=== PATIENT | male | born 1990 | race African-American/Black ===

== ENCOUNTER 2017-08-16 15:08 | Emergency (ER) | payer OTHER, MEDICAID ==
[~2017-08-16] VITALS: Ht 167.6 cm; Wt 130.0 kg
[2017-08-16] MEDS ORDERED: TETANUS, DIPHTHERIA, PERTUSSIS VAC/PF 0.5ML (>7YR OLD) IM ONE (16:00)
[2017-08-16] MEDS ORDERED: BACITRACIN ZINC OINT UDPKT TOP ONE (16:00)
[2017-08-16 17:28] VITALS: BP 128/79
== END 2017-08-16 17:57 | disposition home or self-care (01) ==
LOC: ER 15:50
DX: S60.417A Abrasion of left little finger, initial encounter (principal); S60.415A Abrasion of left ring finger, initial encounter; Y22.XXXA Handgun discharge, undetermined intent, initial encounter; Y93.89 Activity, other specified; Y92.212 Middle school as the place of occurrence of the external cause; Y99.8 Other external cause status
CPT/HCPCS: 73130; 90471; 90715; 99284